=== PATIENT | female | born 1980 | race Two or more races ===

== ENCOUNTER 2024-08-03 09:13 | Outpatient (AMB) | payer BC, SELFPAY ==
--- NOTE | 2024-08-03 09:23 | GSCOFFNT_ITS ---
Vital Signs - [facility] 08/03/24 09:24 Height 1.68 m Height Method Stated Weight 84.425 kg Weight Measurement Method Standing Scale BMI 30.0 BP 120/78 Blood Pressure Source Automatic Cuff Blood Pressure Location Left Upper Arm Position Sitting Respiration 18 Pulse 67 Pulse Source Monitor Temp 97.2 F Temp Source Temporal Artery Scan Pulse Oximetry (%) 99 Oxygen Delivery Method Room Air Med/Allergies Allergies & Medications Allergies ketorolac Allergy (Unknown, Verified 08/03/24 09:24) EYES ROLLED BACK, SHAKING Medication Reconciliation rosuvastatin 5 mg tablet 5 mg PO QDAY 08/03/24 [History Confirmed 08/03/24] tramadol 5 mg/mL oral solution 50 mg PO BID PRN 08/03/24 [History Confirmed 08/03/24] MA Intake Visit Data Collection New Patient or Established: New Patient (never been to [facility]) Seen by Clinical Staff ONLY (RN/MA): No Reason for Visit:: REFERRAL HEMORRHOIDS Pain Present Currently: No PCP or OBGYN visit in last 3 months: Yes Hx Now: No Do You Feel Safe at Home: Yes Authorities Contacted: N/A Smoking Status Smoking Status: Never smoker Immunization / Flu Flu Vaccine in the Last 12 Months: No Flu Vaccine Exclusion Criteria: Refused by Patient Past Medical History Social History SMOKING STATUS: Smoking status: Never smoker HPI HPI Narrative 44F referred for symptomatic hemorrhoids. Pt had undergone colonoscopy and was scheduled for hemorrhoidectomy by Dr Rice however due to changes in his accepted insurances she was referred to me. Pt states she tends to have bleeding from hemorrhoids when she has episodes of constipation, and also has discomfort as well as the feeling that it is diffcult to keep the area clean. She states her BMs are soft without any straining or diarrhea, and her colonoscopy was done within the past year showing a benign polyp (she was advised her next scope would be due in 10 years). At the moment she is not using any remedies for her hemorrhoids PMH: HTN, HLD, chronic neck/back pain PSHx: Gastric sleeve, spinal and shoulder surgeries Meds: Tramadol (Pt takes she takes it monthly), rosuvastatin, diclofenac Allergies: NKDA Social hx: Nonsmoker Family hx: No known IBD or malignancy ROS Review of Systems Systems Reviewed: All systems reviewed, normal except as documented Objective/Exam General General Appearance: alert, cooperative and well groomed Resp Respiratory exam: Absent respiratory distress Rectal Rectal exam: Present other (small external hemorrhoids) Assessment & Plan Diagnosis / Problem List (1) Hemorrhoids with complication: Status: Acute Assessment & Plan: 44F with symptomatic hemorrhoids refractory to conservative management. I explained the THD procedure including risks of hemorrhoid persistence/recurrence, bleeding, infection and perianal fistula. All questions were answered and pt would like to proceed ALICE Office Procedures GNS Level of Care Nursing/Assessment Patient Status: Initial/New Patient Nursing Assessment/Reassesment: Medication Reconciliation, Update PMH in EMR and Vital Signs Coordination of Care: Complex Care and Chronic Disease 1-5, Consent,records obtained, informed consent, Education Simp Pt/Fam, Results/Orders obtained and Staff clarify orders New Patient Charge New Patient Point Assignment: 1089 New Patient Point Charge: GERIATRIC SOCIAL WORKER Level 3 (9982-2724) Patient Portal Questionaires Social History Tobacco History Smoking Status: Never smoker Domestic Abuse History Do You Feel Safe at Home: Yes Review of Systems Report any current symptoms Only answer those that you have currently: Past Medical History Past Medical History Have you ever been diagnosed with any of the following:
[2024-08-03 09:24] VITALS: BP 120/78; PULSE 67; RESP 18; TEMP 36.2; O2SAT 99
== END 2024-08-03 09:49 | disposition home or self-care (01) ==
LOC: HODSRG 09:13
PROVIDERS: PCP Internal Medicine; Referring Provider Internal Medicine; Supervising Provider Surgery; Visit Provider Surgery
DX: K64.8 Other hemorrhoids (principal)
CPT/HCPCS: 99203; G0463

== ENCOUNTER 2024-08-26 05:35 | Day surgery (SDC) | payer BC, SELFPAY ==
[2024-08-24 08:50] VITALS: BMI 31.8
--- NOTE | 2024-08-24 09:04 | EKG_ITS ---
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
[2024-08-24 09:52] LABS: Basophils % (Auto) 1 % (0-2.5); Eosinophils # (Auto) 0.2 Thou/mm3 (0.0-0.5); Eosinophils % (Auto) 3 % (0-10); Hematocrit 38.7 % (36.0-46.0); Hemoglobin 13.2 g/dL (12.0-16.0); Immature Granulocytes % (Auto) 0 % (0-0); Immature Granulocytes Auto 0.01 Thou/mm3 (0.00-0.00); Lymphocytes # (Auto) 2.2 Thou/mm3 (1.0-4.8); Lymphocytes % (Auto) 28 % (10-50); Mean Corpuscular HGB Conc 34.1 g/dl (31.0-37.0); Mean Corpuscular Hemoglobin 29.1 pg (25.0-35.0); Mean Corpuscular Volume 85 fL (80-100); Monocytes # (Auto) 0.4 Thou/mm3 (0.0-0.8); Monocytes % (Auto) 5 % (0-12); Neutrophils % (Auto) 64 % (37-80); Nucleated Red Blood Cell % 0 /100 WBC (0); Platelet Count 278 Thou/mm3 (140-440); RDW Standard Deviation 40.1 fL (36.4-46.3); Red Blood Count 4.53 Miln/mm3 (4.00-5.20); White Blood Count 7.9 Thou/mm3 (3.6-11.0)
[2024-08-24 09:58] LABS: Alanine Aminotransferase 15 U/L (10-49); Albumin, Serum 4.8 gm/dL (3.5-5.0); Albumin/Globulin Ratio 2.3 (1.2-2.2); Alkaline Phosphatase 65 U/L (46-116); Anion Gap 8 (7-16); Aspartate Amino Transferase 16 U/L (0-34); BUN/Creatinine Ratio 10 Ratio (12-20); Bilirubin,Total 0.5 mg/dL (0.3-1.2); Blood Urea Nitrogen 8 mg/dL (9-23); Calcium 9.8 mg/dL (8.3-10.6); Calcium (Corrected) 9.8 mg/dL (8.5-10.1); Carbon Dioxide 27.3 mMol/L (20.0-31.0); Chloride 102 mMol/L (98-107); Creatinine (Component) 0.8 mg/dL (0.6-1.3); Estimated Creatinine Clearance 98.7 mL/min (>60); Globulin 2.1 gm/dL (2.3-3.5); Glucose 94 mg/dL (74-106); Osmolality,Calculated 272 (275-295); Potassium 3.7 mMol/L (3.4-5.1); Sodium 137 mMol/L (136-145); Total Protein 6.9 gm/dL (5.7-8.2); eGFR > 60 See Note
[2024-08-24 09:59] LABS: HCG Qualitative,Urine Negative
[2024-08-24 10:03] LABS: Partial Thromboplastin Time 27.1 Seconds (22.0-36.0); Prothrombin Time 11.1 Seconds (9.0-12.2)
[2024-08-26] VITALS (8 sets, daily range): BP systolic 121–132; BP diastolic 78–94; PULSE 60–102; RESP 12–20; TEMP 36.3–36.6; O2SAT 97–100; BMI 31.2
[2024-08-26] MEDS: RINGERS LACTATED 1000 ML 1,000 ML 20 ML IV (06:38)
--- NOTE | 2024-08-26 08:33 | PD.SUROPNT ---
Date of Procedure 08/26/24 Pre Op Diagnosis Symptomatic hemorrhoids Post Op Diagnosis Same Procedure Transanal hemorrhoidal dearterialization Findings Internal hemorrhoids, external hemorrhoidal skin tag at the right anterior perianal region Procedure Description After discussion of risks and benefits, patient was brought to the operating room, SCDs were placed and general anesthesia was induced. She was placed in lithotomy position with proper padding and was prepped and draped in usual sterile fashion. After timeout a OLGA was performed which was normal. Transanal hemorrhoidal dearterialization was undertaken at the 1, 3, 5, 7, 9 and 11:00 positions. Because of redundant tissue as well as the external hemorrhoidal skin tag at the right anterior perianal region, mucopexy was also performed at the 9 and 11:00 positions. Right and left pudendal nerve blocks were performed as well as a local block for total of 30 cc of half percent Marcaine. Patient was returned to supine position and extubated without complication. She was brought to PACU in stable condition Pathology / specimen None Estimated Blood Loss 10 Surgeon Edna Hernandez MD Surgical Staff Operation Date: 08/26/24 07:30 Case Staff ROCK MASON APPRENTICE: Darnell Calles
--- NOTE | 2024-08-26 08:36 | PD.SURDS ---
Planned Discharge Date 08/26/24 DS: Providers Provider Primary care physician: Chelsy Davey MD Attending Provider on Admission: Edna Hernandez MD Attending Provider on DC: Edna Hernandez MD Discharging Provider: Edna Hernandez MD Diagnosis Discharge Diagnosis (1) Hemorrhoids with complication: Status: Acute Problem List Completed Was Problem List Reviewed/Reconciled?: Yes Exam Vital Signs Temp Pulse Resp BP Pulse Ox 97.4 F 60 17 124/78 100 08/26/24 06:29 08/26/24 06:29 08/26/24 06:29 08/26/24 06:29 08/26/24 06:29 Discharge Plan Plan Patient Disposition: HOME (Self Care) Prescriptions/Referrals Prescriptions/Med Rec: New oxycodone-acetaminophen [Percocet] 5-325 mg tablet 1 tab PO Q4H MDD 6 tabs PRN (Reason: pain) Qty: 30 0RF Rx Instructions: Take 1 tablet every 4-6 hours as needed for moderate to severe pain docusate sodium [Colace] 100 mg capsule 100 mg PO QDAY PRN (Reason: constipation) Qty: 30 0RF ibuprofen 600 mg tablet 600 mg PO Q6H PRN (Reason: pain) Qty: 30 0RF Rx Instructions: Take 1 tab every 6 hours as needed for mild to moderate pain No Action rosuvastatin 5 mg tablet 5 mg PO QDAY valsartan 80 mg tablet 80 mg PO DAILY Patient Comments: TAKE 1 TABLET BY MOUTH TWICE DAILY diclofenac potassium 50 mg tablet 50 mg PO Q12H PRN (Reason: pain) Patient Comments: TAKE 1 TABLET BY MOUTH TWICE DAILY vitamin [id number]-[id number] acid 500-400 mcg tablet 1 tab PO QAM Rx Instructions: administer with a meal Referrals: Edna Hernandez MD [Physician] - (You will receive a phone call to confirm a follow-up appointment with me in 6 weeks) Chelsy Davey MD [Primary Care Provider] - Patient/Caregiver Discharge Instructions Other Discharge Activity Instructions:: Avoid constipation and diarrhea You may resume sitz baths as needed for pain, swelling, bleeding and itching starting tomorrow 08/27 Take ibuprofen as needed in between doses of Percocet or instead of Percocet for mild to moderate pain If you develop fever, pain that is not controlled by medications, bleeding or difficulty urinating please seek care in ER Education Materials: Anesthesia: General Anesthesia, Surgery Anesthesia After, Treating Hemorrhoids: Surgery, Preventing Surgical Site Infections, Taking a Sitz Bath, [facility] [place] Instructions- Indonesian Print Language: Indonesian Stand Alone Forms: Cristela Award Info., Patient Portal Info Letter Discharge Order Discharge Orders: Discharge (Routine); Ordered 08/26/24 Ordered By: Edna Hernandez Results Results: Laboratory Laboratory results: results reviewed PROCEDURES: Procedure Date 08/26/24 Procedures Transanal hemorrhoidal dearterialization
--- NOTE | 2024-08-26 08:42 | SUR.PHASEI ---
0842: Pt. AAOx4, vitals stable, breathing unlabored, no complaint of pain or nausea, dressing to rectum has scant amount of blood, report received from Alia RUIZ and Herber BERGER.
[2024-08-26] MEDS: HYDROmorphone INJ 2 MG/ML VIAL 0.4 MG IVP ×3 (08:55→09:12)
[2024-08-26] MEDS: METOCLOPRAMIDE INJ 5 MG/ML VIAL 2 ML 10 MG IVP (09:16)
--- NOTE | 2024-08-26 09:45 | SUR.PHASEII ---
0945: Pt. AAOx4, vitals stable, breathing unlabored, no complaint of pain or nausea, dressing to rectum has same amount of drainage as arrival to PACU, pt. tolerated sips of water well, pt. ambulated to wheelchair with steady gait and no assist, no complications. Gave discharge instructions to the pt. and her ride, both verbalized understanding and had no further questions. Pt. left with all personal belongings.
== END 2024-08-26 09:45 | disposition home or self-care (01) ==
PROVIDERS: Anesthesiology; PCP Internal Medicine; Referring Provider Surgery; Visit Provider Surgery
PROC: (CPT 46948; principal; 2024-08-26 07:30)
DX: K64.4 Residual hemorrhoidal skin tags (principal); K64.8 Other hemorrhoids; Z01.810 Encounter for preprocedural cardiovascular examination
CPT/HCPCS: 46948; 36415; 80048; 80053; 81025; 85025; 85610; 85730; 93005; A4217; A4649; J0131; J1171; J1885; J2250; J2704; J2765; J3010; J3490; J7120; J1596

== ENCOUNTER 2024-09-07 09:21 | Outpatient (AMB) | payer OTHER, SELFPAY ==
--- NOTE | 2024-09-07 09:30 | PD.GSCLVISIT ---
Vital Signs - [facility] 09/07/24 09:32 Height 1.65 m Height Method Stated Weight 86.353 kg Weight Measurement Method Standing Scale BMI 31.7 BP 136/85 H Blood Pressure Source Automatic Cuff Blood Pressure Location Right Upper Arm Position Sitting Respiration 18 Pulse 63 Pulse Source Monitor Temp 97.4 F Temp Source Temporal Artery Scan Pulse Oximetry (%) 99 Oxygen Delivery Method Room Air Med/Allergies Allergies & Medications Allergies No Known Allergies Allergy (Verified 09/07/24 09:34) Medication Reconciliation rosuvastatin 5 mg tablet 5 mg PO QDAY 08/03/24 [History Confirmed 09/07/24] diclofenac potassium 50 mg tablet 50 mg PO Q12H PRN pain 08/24/24 [History Confirmed 09/07/24] valsartan 80 mg tablet 80 mg PO DAILY 08/24/24 [History Confirmed 09/07/24] vitamin B12 500 mcg-folic acid 400 mcg tablet 1 tab PO QAM 08/24/24 [History Confirmed 09/07/24] docusate sodium 100 mg capsule (Colace) 100 mg PO QDAY PRN constipation #30 caps 08/26/24 [Rx Confirmed 09/07/24] ibuprofen 600 mg tablet 600 mg PO Q6H PRN pain #30 tabs 08/26/24 [Rx Confirmed 09/07/24] oxycodone-acetaminophen 5 mg-325 mg tablet (Percocet) 1 tab PO Q4H PRN pain #30 tabs 08/26/24 [Rx Confirmed 09/07/24] MA Intake Visit Data Collection New Patient or Established: Established Patient (seen at [facility] within 3 years) Seen by Clinical Staff ONLY (RN/MA): No Reason for Visit:: F/U ON THD Pain Present Currently: No Pain scale:: 0 Pain Scale Used: Back-Gallegos/Numerical Electronics Detail Draftsperson Required: No PCP or OBGYN visit in last 3 months: Yes Hx Now: No Do You Feel Safe at Home: Yes Authorities Contacted: N/A Smoking Status Smoking Status: Never smoker Immunization / Flu Flu Vaccine in the Last 12 Months: No Flu Vaccine Exclusion Criteria: No Exclusion Criteria Past Medical History Past Medical History NEUROLOGIC: Negative Neurological Disorders or Seizures CARDIAC: Positive Cardiac Disorders, Hypercholesterolemia and Hypertension; Negative Congestive Heart Failure RESPIRATORY: Negative Chronic Obstructive Pulmonary Disease (COPD) GASTROINTESTINAL: Positive Gastrointestinal Disorders, Hemorrhoids and Obesity; Negative Hepatitis GENITOURINARY: Negative Genitourinary Disorders or Renal Disease REPRODUCTIVE: Negative Pelvic Inflammatory Disease or Previous Pregnancies MUSCULOSKELETAL: Positive Degenerative Disk Disease ENDOCRINE: Negative Endocrine Disorders, Diabetes Mellitus Type 1 or Diabetes Mellitus Type 2 HEMATOLOGIC: Negative Blood Disorders OTHER HISTORY: Positive Hospitalization (back surgery) and Chicken Pox; Negative Autoimmune Disease, Shingles, Blood Transfusions, Blood Transfusion Reaction, Anesthesia Reactions or Cancer Family History FAMILY HISTORY: Positive Family Cardiac Disorders and Family Surgery; Negative Family Psychiatric Problems, Family Respiratory Disorders, Family Gastrointestinal Problems, Family Cancer or Family Anesthesia Reaction Surgical History SURGICAL: Positive Gastric Bypass Surgery Social History SMOKING STATUS: Smoking status: Never smoker ALCOHOL: Alcohol Intake: Current HOUSING: Housing: House Travel Risk Travel Hx Recent Travel: No HPI HPI Narrative 44F s/p THD 08/26 for symptomatic hemorrhoids here to discuss symptoms. Pt states her pain is controlled with ibuprofen but she has noticed increased swelling to the area in the past couple of days which feels like an increase in the size of her previous hemorrhoids. She is having mild bleeding and itching and is taking sitz baths regularly. Her BMs are soft without any straining or diarrhea ROS Review of Systems Systems Reviewed: All systems reviewed, normal except as documented Objective/Exam General General Appearance: alert, cooperative and well groomed Resp Respiratory exam: Absent respiratory distress Assessment & Plan Diagnosis / Problem List (1) Hemorrhoids with complication: Status: Acute Assessment & Plan: 44F s/p THD 08/26 for symptomatic hemorrhoids, gradually recovering Plan: F/u in 4 weeks Office Procedures GNS Level of Care Nursing/Assessment Patient Status: Established Patient Nursing Assessment/Reassesment: Medication Reconciliation, Update PMH in EMR and Vital Signs Coordination of Care: Complex Care and Chronic Disease 1-5, Education Complex Pt/Fam, Consent,records obtained, informed consent, Results/Orders obtained and Staff clarify orders Established Patient Charge Established Patient Point Assignment: 95 Established Patient Point Charge: EP Level 3 (80-115) Patient Portal Questionaires Social History Living Situation History Housing: House Tobacco History Smoking Status: Never smoker Alcohol History Alcohol Intake: Current Domestic Abuse History Do You Feel Safe at Home: Yes Review of Systems Report any current symptoms Only answer those that you have currently: Past Medical History Past Medical History Have you ever been diagnosed with any of the following: Neurological Problems Seizures: No Cardiology Problems Hypercholesterolemia: Yes Congestive Heart Failure: No Hypertension: Yes Respiratory Problems Chronic Obstructive Pulmonary Disease (COPD): No Stomache/Intestinal Problems Hepatitis: No Hemorrhoids: Yes Obesity: Yes Genital/Urinary Problems Renal Disease: No Reproductive Problems Pelvic Inflammatory Disease: No Previous Pregnancies: No Musculoskeletal Problems Degenerative Disk Disease: Yes Endocrine Problems Diabetes Mellitus Type 1: No Diabetes Mellitus Type 2: No Other Problems Hospitalization: Yes (back surgery) Autoimmune Disease: No Shingles: No Blood Transfusions: No Blood Transfusion Reaction: No Anesthesia Reactions: No Chicken Pox: Yes Cancer: No
[2024-09-07 09:32] VITALS: BP 136/85; PULSE 63; RESP 18; TEMP 36.3; O2SAT 99; BMI 31.7
== END 2024-09-07 09:53 | disposition home or self-care (01) ==
LOC: HODSRG 09:21
PROVIDERS: PCP Internal Medicine; Referring Provider Internal Medicine; Supervising Provider Surgery; Visit Provider Surgery
DX: Z48.815 Encounter for surgical aftercare following surgery on the digestive system (principal); K64.8 Other hemorrhoids; I10 Essential (primary) hypertension; E78.00 Pure hypercholesterolemia, unspecified
CPT/HCPCS: 99213; G0463

== ENCOUNTER → 2024-09-07 | Outpatient (CLI) | payer OTHER, SELFPAY ==
[2024-09-07 10:26] LABS: Basophils # (Auto) 0.1 Thou/mm3 (0.0-0.2); Basophils % (Auto) 1 % (0-2.5); Eosinophils # (Auto) 0.3 Thou/mm3 (0.0-0.5); Eosinophils % (Auto) 4 % (0-10); Hematocrit 37.3 % (36.0-46.0); Hemoglobin 12.8 g/dL (12.0-16.0); Immature Granulocytes Auto 0.02 Thou/mm3 (0.00-0.00); Lymphocytes # (Auto) 2.5 Thou/mm3 (1.0-4.8); Lymphocytes % (Auto) 35 % (10-50); Mean Corpuscular HGB Conc 34.3 g/dl (31.0-37.0); Mean Corpuscular Hemoglobin 28.6 pg (25.0-35.0); Mean Corpuscular Volume 83 fL (80-100); Monocytes # (Auto) 0.4 Thou/mm3 (0.0-0.8); Monocytes % (Auto) 6 % (0-12); Neutrophils # (Auto) 3.8 Thou/mm3 (1.8-7.7); Neutrophils % (Auto) 54 % (37-80); Nucleated Red Blood Cell # 0.00 Thou/mm3 (0.00-0.00); Nucleated Red Blood Cell % 0 /100 WBC (0); Platelet Count 337 Thou/mm3 (140-440); RDW Standard Deviation 37.9 fL (36.4-46.3); Red Blood Count 4.48 Miln/mm3 (4.00-5.20); White Blood Count 7.0 Thou/mm3 (3.6-11.0)
[2024-09-07 10:45] LABS: Alanine Aminotransferase 22 U/L (10-49); Albumin, Serum 4.5 gm/dL (3.5-5.0); Albumin/Globulin Ratio 1.7 (1.2-2.2); Alkaline Phosphatase 87 U/L (46-116); Anion Gap 9 (7-16); Aspartate Amino Transferase 22 U/L (0-34); BUN/Creatinine Ratio 10 Ratio (12-20); Bilirubin,Total 0.3 mg/dL (0.3-1.2); Blood Urea Nitrogen 8 mg/dL (9-23); Calcium 9.4 mg/dL (8.3-10.6); Calcium (Corrected) 9.4 mg/dL (8.5-10.1); Carbon Dioxide 28.9 mMol/L (20.0-31.0); Chloride 104 mMol/L (98-107); Creatinine (Component) 0.8 mg/dL (0.6-1.3); Globulin 2.6 gm/dL (2.3-3.5); Glucose 94 mg/dL (74-106); Osmolality,Calculated 281 (275-295); Potassium 4.1 mMol/L (3.4-5.1); Sodium 142 mMol/L (136-145); Total Protein 7.1 gm/dL (5.7-8.2); eGFR > 60 See Note
== END | disposition home or self-care (01) ==
LOC: COPL 08:59
PROVIDERS: PCP Internal Medicine; Referring Provider Orthopaedic Surgery; Visit Provider Orthopaedic Surgery
DX: Z79.1 Long term (current) use of non-steroidal anti-inflammatories (NSAID) (principal)
CPT/HCPCS: 36415; 80053; 85025

== ENCOUNTER 2024-10-05 13:00 | Outpatient (AMB) | payer OTHER, SELFPAY ==
--- NOTE | 2024-10-05 13:04 | GSCOFFNT_ITS ---
Vital Signs - [facility] 10/05/24 13:07 Height 1.65 m Height Method Measured Weight 87.288 kg Weight Measurement Method Standing Scale BMI 32.1 BP 113/79 Blood Pressure Source Automatic Cuff Blood Pressure Location Left Upper Arm Position Sitting Respiration 18 Pulse 71 Pulse Source Monitor Temp 97.4 F Temp Source Temporal Artery Scan Pulse Oximetry (%) 97 Oxygen Delivery Method Room Air Med/Allergies Allergies & Medications Allergies No Known Allergies Allergy (Verified 10/05/24 13:08) Medication Reconciliation rosuvastatin 5 mg tablet 5 mg PO QDAY 08/03/24 [History Confirmed 10/05/24] diclofenac potassium 50 mg tablet 50 mg PO Q12H PRN pain 08/24/24 [History Confirmed 10/05/24] valsartan 80 mg tablet 80 mg PO DAILY 08/24/24 [History Confirmed 10/05/24] vitamin B12 500 mcg-folic acid 400 mcg tablet 1 tab PO QAM 08/24/24 [History Confirmed 10/05/24] docusate sodium 100 mg capsule (Colace) 100 mg PO QDAY PRN constipation #30 caps 08/26/24 [Rx Confirmed 10/05/24] ibuprofen 600 mg tablet 600 mg PO Q6H PRN pain #30 tabs 08/26/24 [Rx Confirmed 10/05/24] oxycodone-acetaminophen 5 mg-325 mg tablet (Percocet) 1 tab PO Q4H PRN pain #30 tabs 08/26/24 [Rx Confirmed 10/05/24] MA Intake Visit Data Collection New Patient or Established: Established Patient (seen at [facility] within 3 years) Seen by Clinical Staff ONLY (RN/MA): No Pain Present Currently: No Product Engineering Manager Required: No PCP or OBGYN visit in last 3 months: Yes Hx Now: No Do You Feel Safe at Home: Yes Authorities Contacted: N/A Smoking Status Smoking Status: Never smoker Immunization / Flu Flu Vaccine in the Last 12 Months: No Flu Vaccine Exclusion Criteria: No Exclusion Criteria Past Medical History Past Medical History NEUROLOGIC: Negative Neurological Disorders or Seizures CARDIAC: Positive Cardiac Disorders, Hypercholesterolemia and Hypertension; Negative Congestive Heart Failure RESPIRATORY: Negative Chronic Obstructive Pulmonary Disease (COPD) GASTROINTESTINAL: Positive Gastrointestinal Disorders, Hemorrhoids and Obesity; Negative Hepatitis GENITOURINARY: Negative Genitourinary Disorders or Renal Disease REPRODUCTIVE: Negative Pelvic Inflammatory Disease or Previous Pregnancies MUSCULOSKELETAL: Positive Degenerative Disk Disease ENDOCRINE: Negative Endocrine Disorders, Diabetes Mellitus Type 1 or Diabetes Mellitus Type 2 HEMATOLOGIC: Negative Blood Disorders OTHER HISTORY: Positive Hospitalization (back surgery) and Chicken Pox; Negative Autoimmune Disease, Shingles, Blood Transfusions, Blood Transfusion Reaction, Anesthesia Reactions or Cancer Family History FAMILY HISTORY: Positive Family Cardiac Disorders and Family Surgery; Negative Family Psychiatric Problems, Family Respiratory Disorders, Family Gastrointestinal Problems, Family Cancer or Family Anesthesia Reaction Surgical History SURGICAL: Positive Gastric Bypass Surgery Social History SMOKING STATUS: Smoking status: Never smoker ALCOHOL: Alcohol Intake: Current HOUSING: Housing: House HPI HPI Narrative 44F s/p THD 08/26 for symptomatic hemorrhoids here for planned follow up. Pt reports she that she has more tissue protruding now from the right side of the anus as compared to before surgery; she is able to reduce it but it tends to pop out again and she finds it hard to keep the area fully clean. Otherwise she does have improvement in the bleeding and itching and is not currently using any remedies including sitz baths. She states she only took pain medication for two days postop and her BMs remain soft without any straining ROS Review of Systems Systems Reviewed: All systems reviewed, normal except as documented Objective/Exam General General Appearance: alert, cooperative and well groomed Resp Respiratory exam: Absent respiratory distress Assessment & Plan Diagnosis / Problem List (1) Hemorrhoids with complication: Status: Acute Assessment & Plan: 44F s/p THD 08/26 for symptomatic hemorrhoids here for planned follow up, with improvement in her bleeding and itching but with perianal swelling which she fe els is increased compared to preop. I recommended pt resume sitz baths and add epsom salt, and we will follow up in 6 weeks. I explained that if the tissue remains after 6 months we could consider excisional hemorrhoidectomy but that she may notice some improvement with resumption of sitz baths Office Procedures GNS Level of Care Nursing/Assessment Patient Status: Established Patient Nursing Assessment/Reassesment: Medication Reconciliation, Update PMH in EMR and Vital Signs Coordination of Care: Complex Care and Chronic Disease 1-5, Consent,records obtained, informed consent, Education Simp Pt/Fam, Results/Orders obtained and Staff clarify orders Established Patient Charge Established Patient Point Assignment: 90 Established Patient Point Charge: EP Level 3 (80-115) Patient Portal Questionaires Social History Living Situation History Housing: House Tobacco History Smoking Status: Never smoker Alcohol History Alcohol Intake: Current Domestic Abuse History Do You Feel Safe at Home: Yes Review of Systems Report any current symptoms Only answer those that you have currently: Past Medical History Past Medical History Have you ever been diagnosed with any of the following: Neurological Problems Seizures: No Cardiology Problems Hypercholesterolemia: Yes Congestive Heart Failure: No Hypertension: Yes Respiratory Problems Chronic Obstructive Pulmonary Disease (COPD): No Stomache/Intestinal Problems Hepatitis: No Hemorrhoids: Yes Obesity: Yes Genital/Urinary Problems Renal Disease: No Reproductive Problems Pelvic Inflammatory Disease: No Previous Pregnancies: No Musculoskeletal Problems Degenerative Disk Disease: Yes Endocrine Problems Diabetes Mellitus Type 1: No Diabetes Mellitus Type 2: No Other Problems Hospitalization: Yes (back surgery) Autoimmune Disease: No Shingles: No Blood Transfusions: No Blood Transfusion Reaction: No Anesthesia Reactions: No Chicken Pox: Yes Cancer: No
[2024-10-05 13:07] VITALS: BP 113/79; PULSE 71; RESP 18; TEMP 36.3; O2SAT 97; BMI 32.1
== END 2024-10-05 13:25 | disposition home or self-care (01) ==
LOC: HODSRG 13:00
PROVIDERS: PCP Internal Medicine; Referring Provider Internal Medicine; Supervising Provider Surgery; Visit Provider Surgery
DX: K64.8 Other hemorrhoids (principal); I10 Essential (primary) hypertension; E78.00 Pure hypercholesterolemia, unspecified; E66.9 Obesity, unspecified; Z68.32 Body mass index [BMI] 32.0-32.9, adult
CPT/HCPCS: 99213; G0463

== ENCOUNTER 2024-11-30 15:18 | Outpatient (AMB) | payer BC, SELFPAY ==
--- NOTE | 2024-11-30 15:18 | GSCOFFNT_ITS ---
Med/Allergies Allergies & Medications Allergies No Known Allergies Allergy (Verified 11/30/24 15:19) Medication Reconciliation rosuvastatin 5 mg tablet 5 mg PO QDAY 08/03/24 [History Confirmed 11/30/24] diclofenac potassium 50 mg tablet 50 mg PO Q12H PRN pain 08/24/24 [History Confirmed 11/30/24] valsartan 80 mg tablet 80 mg PO DAILY 08/24/24 [History Confirmed 11/30/24] vitamin B12 500 mcg-folic acid 400 mcg tablet 1 tab PO QAM 08/24/24 [History Confirmed 11/30/24] docusate sodium 100 mg capsule (Colace) 100 mg PO QDAY PRN constipation #30 caps 08/26/24 [Rx Confirmed 11/30/24] ibuprofen 600 mg tablet 600 mg PO Q6H PRN pain #30 tabs 08/26/24 [Rx Confirmed 11/30/24] oxycodone-acetaminophen 5 mg-325 mg tablet (Percocet) 1 tab PO Q4H PRN pain #30 tabs 08/26/24 [Rx Confirmed 11/30/24] hydrocortisone 2.5 % topical cream with perineal applicator (Anusol-HC) 1 applic NH QD-BID PRN hemorrhoids #30 grams 11/30/24 [Rx] MA Intake Visit Data Collection New Patient or Established: Established Patient (seen at [facility] within 3 years) Reason for Visit:: VIRTUAL VISIT Pain Present Currently: No Pain scale:: 0 Pain Scale Used: Back-Gallegos/Numerical Nurse Charge Rn Required: No PCP or OBGYN visit in last 3 months: Yes Hx Now: No Do You Feel Safe at Home: Yes Authorities Contacted: N/A Smoking Status Smoking Status: Never smoker For Telemed visit only Telemed Video/Phone Visit: Yes Verbal consent obtained for Telemed visit?: Yes Verbal Consent witness name: DOUGLAS MAY Telemed Video/Phone visit w/Clinical Staff: 21-30 min Immunization / Flu Flu Vaccine in the Last 12 Months: No Flu Vaccine Exclusion Criteria: No Exclusion Criteria Past Medical History Past Medical History NEUROLOGIC: Negative Neurological Disorders or Seizures CARDIAC: Positive Cardiac Disorders, Hypercholesterolemia and Hypertension; Negative Congestive Heart Failure RESPIRATORY: Negative Chronic Obstructive Pulmonary Disease (COPD) GASTROINTESTINAL: Positive Gastrointestinal Disorders, Hemorrhoids and Obesity; Negative Hepatitis GENITOURINARY: Negative Genitourinary Disorders or Renal Disease REPRODUCTIVE: Negative Pelvic Inflammatory Disease or Previous Pregnancies MUSCULOSKELETAL: Positive Degenerative Disk Disease ENDOCRINE: Negative Endocrine Disorders, Diabetes Mellitus Type 1 or Diabetes Mellitus Type 2 HEMATOLOGIC: Negative Blood Disorders OTHER HISTORY: Positive Hospitalization (back surgery) and Chicken Pox; Negative Autoimmune Disease, Shingles, Blood Transfusions, Blood Transfusion Reaction, Anesthesia Reactions or Cancer Family History FAMILY HISTORY: Positive Family Cardiac Disorders and Family Surgery; Negative Family Psychiatric Problems, Family Respiratory Disorders, Family Gastrointestinal Problems, Family Cancer or Family Anesthesia Reaction Surgical History SURGICAL: Positive Gastric Bypass Surgery Social History SMOKING STATUS: Smoking status: Never smoker ALCOHOL: Alcohol Intake: Current HOUSING: Housing: House Travel Risk Travel Hx Recent Travel: No HPI HPI Narrative 44F s/p THD 08/26 for symptomatic hemorrhoids presenting for a televisit. Pt states she feels overall well though she still does have protruding tissue which she feels makes it hard to keep the area clean. She denies any pain, bleeding or itching and is not currently using any remedies ROS Review of Systems Systems Reviewed: All systems reviewed, normal except as documented Objective/Exam General Limitations: other (televisit) Assessment & Plan Diagnosis / Problem List (1) Hemorrhoids with complication: Status: Acute Assessment & Plan: 44F s/p THD 08/26 for symptomatic hemorrhoids having televisit for planned follow up. Pt is overall doing well except for the persistence of hemorrhoidal tissue. She understandably prefers not to have any further surgical procedures but would like to try hydrocortisone cream as she has not before. I sent an rx and advised her not to apply to the area for more than 6 weeks at a time. I also encouraged her to reach out if symptoms worsen or if she has any further questions or concerns Office Procedures GNS Level of Care Nursing/Assessment Patient Status: Established Patient Nursing Assessment/Reassesment: Medication Reconciliation, Update PMH in EMR and Vital Signs Coordination of Care: Complex Care and Chronic Disease 1-5, Education Complex Pt/Fam, Consent,records obtained, informed consent, Results/Orders obtained and Staff clarify orders Established Patient Charge Established Patient Point Assignment: 95 Telehealth If patient is seen using Teleconference methods, complete New/Est section, but DO NOT ciaran points only ciaran the correct Telemed visit type Telemed Phone/Video with patient at home & Dr,PA,DIRECTOR OF SOCIAL WORK: Yes Patient Portal Questionaires Social History Living Situation History Housing: House Tobacco History Smoking Status: Never smoker Alcohol History Alcohol Intake: Current Domestic Abuse History Do You Feel Safe at Home: Yes Review of Systems Report any current symptoms Only answer those that you have currently: Past Medical History Past Medical History Have you ever been diagnosed with any of the following: Neurological Problems Seizures: No Cardiology Problems Hypercholesterolemia: Yes Congestive Heart Failure: No Hypertension: Yes Respiratory Problems Chronic Obstructive Pulmonary Disease (COPD): No Stomache/Intestinal Problems Hepatitis: No Hemorrhoids: Yes Obesity: Yes Genital/Urinary Problems Renal Disease: No Reproductive Problems Pelvic Inflammatory Disease: No Previous Pregnancies: No Musculoskeletal Problems Degenerative Disk Disease: Yes Endocrine Problems Diabetes Mellitus Type 1: No Diabetes Mellitus Type 2: No Other Problems Hospitalization: Yes (back surgery) Autoimmune Disease: No Shingles: No Blood Transfusions: No Blood Transfusion Reaction: No Anesthesia Reactions: No Chicken Pox: Yes Cancer: No
== END 2024-11-30 16:00 | disposition home or self-care (01) ==
LOC: HODSRG 15:18
PROVIDERS: PCP Internal Medicine; Referring Provider Internal Medicine; Supervising Provider Surgery; Visit Provider Surgery
DX: K64.8 Other hemorrhoids (principal); I10 Essential (primary) hypertension; E78.00 Pure hypercholesterolemia, unspecified; E66.9 Obesity, unspecified
CPT/HCPCS: 99212; G0463

== ENCOUNTER → 2024-12-08 | Outpatient (CLI) | payer OTHER, SELFPAY ==
--- NOTE | 2024-12-08 | XR_ITS ---
Examination: Shoulder, left, 3 views Technique: Shoulder AP internal rotation, AP external rotation, Y view shoulder, 3 views Exam date and time : December 08, 2024, 1132 hours INDICATION: Left shoulder pain beginning 1 year ago. FINDINGS: Minimal narrowing glenohumeral joint No fracture or dislocation. No calcific tendinitis IMPRESSION: Minimal narrowing glenohumeral joint
== END | disposition home or self-care (01) ==
PROVIDERS: PCP Internal Medicine; Referring Provider Orthopaedic Surgery; Visit Provider Orthopaedic Surgery
DX: M25.812 Other specified joint disorders, left shoulder (principal)
CPT/HCPCS: 73030